=== PATIENT | male | born 1970 | race Caucasian/White ===

== ENCOUNTER → 2022-02-19 | Outpatient (CLI) | payer MEDICARE, MEDICAID ==
[~2022-02-19] MED LIST: ACET325T43 PO; DEPA1TAB3 PO; FLUV50TA PO; GUAN1TAB17 PO; LEVO50TA5 PO; LISI2.5T9 PO; OLAN20TA14 PO; RISP3TAB20 PO; VITA100054 PO; [UNRECOGNIZED DRUG - CODE]; [UNRECOGNIZED DRUG - CODE] IJ
== END ==
LOC: M LABSMTC 11:32
PROVIDERS: ATTEND Anesthesiology
DX: Z20.828 Contact with and (suspected) exposure to other viral communicable diseases (principal); Z11.59 Encounter for screening for other viral diseases

== ENCOUNTER 2022-02-24 10:59 | Day surgery (SDC) | payer MEDICARE, MEDICAID ==
[~2022-02-24] VITALS: Ht 175.3 cm; Wt 100.7 kg
[~2022-02-24 10:59] MED LIST changes: +LIDOCAINE 2% 100MG/5ML SDV (FOR ANES.) As Ordered ONE; +NS 1,000 ML IV ONE; +propofoL 200 MG/20 ML VIAL As Ordered ONE
[2022-02-24] MEDS ORDERED: LORA-674 PO (11:22)
[2022-02-24 13:57] VITALS: BP 131/75
== END 2022-02-24 14:16 | disposition home or self-care (01) ==
LOC: M OPP 10:59
PROVIDERS: ATTEND Internal Medicine Gastroenterology
DX: Z12.11 Encounter for screening for malignant neoplasm of colon (principal); Q43.8 Other specified congenital malformations of intestine; K64.8 Other hemorrhoids; I10 Essential (primary) hypertension; E03.9 Hypothyroidism, unspecified; E11.9 Type 2 diabetes mellitus without complications; Z79.899 Other long term (current) drug therapy; Z79.890 Hormone replacement therapy